=== PATIENT | male | born 1985 | race Caucasian/White ===

== ENCOUNTER 2020-03-28 18:50 | Emergency (ER) | payer OTHER ==
[~2020-03-28] VITALS: Ht 182.9 cm; Wt 113.6 kg
[2020-03-28 18:53] VITALS: Ht 182.9 cm; Wt 113.6 kg
[2020-03-28] MEDS ORDERED: ULTRAM50 MG PO (20:40)
[2020-03-28] MEDS ORDERED: AUGMENTIN 875-11 TAB PO (20:56)
[2020-03-28 22:19] VITALS: BP 125/77
== END 2020-03-28 22:20 | disposition home or self-care (01) ==
LOC: D.ER 18:50
DX: S02.40DA Maxillary fracture, left side, initial encounter for closed fracture (principal); S02.85XA Fracture of orbit, unspecified, initial encounter for closed fracture; S62.101A Fracture of unspecified carpal bone, right wrist, initial encounter for closed fracture; V29.9XXA Motorcycle rider (driver) (passenger) injured in unspecified traffic accident, initial encounter; Y93.9 Activity, unspecified; Y92.9 Unspecified place or not applicable

== ENCOUNTER 2020-04-26 07:31 | Day surgery (SDC) | payer MEDICARE ==
[~2020-04-26] VITALS: Ht 180.3 cm; Wt 111.1 kg
--- NOTE | ~2020-04-26 | OP ---
PATIENT NAME: JULIO BARRAZA MEDICAL RECORD: [id number] :81 LOCATION:[facility] ADMISSION DATE: SURGEON: OSMIN SAMANIEGO MD DATE OF OPERATION: 04/26/2020 PREOPERATIVE DIAGNOSES: Displaced intra-articular fracture of the right distal radius, acute carpal tunnel syndrome. POSTOPERATIVE DIAGNOSES: Displaced intra-articular fracture of the right distal radius, acute carpal tunnel syndrome. PROCEDURE: Open reduction internal fixation of the right distal radius, carpal tunnel release. SURGEON: Osmin Samaniego MD CHIMNEY BUILDER: KEYSHAWN Aguayo INTRAOPERATIVE COMPLICATIONS: None. IMPLANTS USED: VariAx 2 distal radial plate system. INDICATIONS: Julio Barraza initially presented with a nondisplaced distal radius fracture. However, in his post-fracture period, he tried to catch a falling large TV and sustained a second injury requiring operative intervention. OPERATIVE SUMMARY IN DETAIL: After obtaining the appropriate preoperative orthopedic surgery consent as well as anesthetic consultation, evaluation and clearance, the patient was brought to the operating room and placed on the operating table in supine position. After adequate general laryngeal mask was administered, tourniquet was placed about the proximal aspect of the right upper extremity. Right upper extremity was then prepped and draped in routine sterile fashion. The arm was elevated and exsanguinated, tourniquet inflated to 250 mmHg. At this point, the appropriate timeout was taken and agreed upon by all. Curvilinear incision was made in keeping with Domenico's volar approach into the palmar aspect. A carpal tunnel release was performed. After the curvilinear incision was made, dissection was carried into the mid palmar space and under direct visualization, transverse carpal ligament was incised in its entirety. Dissection was carried down into the fracture. Care was taken to avoid contact with the median nerve and flexors. These were gently retracted. After the fracture was identified in its entirety, it was reduced under fluoroscopic visualization and then the VariAx 2 plate was placed again under fluoroscopic visualization until it was in the appropriate position. Serial drill and fill technique was used with a combination of both compression and locking screws. Final radiographs were submitted on AP and lateral planes for radiologist review. The wound was then irrigated and closed by KEYSHAWN Aguayo with #2-0 Vicryl followed by 4-0 Prolene in a running fashion. Sterile dressings were applied. Volar splint was applied. Tourniquet was deflated. The patient was awakened and taken to the recovery room in stable condition. All final needle and sponge counts were correct. TRANSINT:[id number] Voice Confirmation ID: [id number] DOCUMENT ID: [id number] OPERATIVE REPORT [id number] JULIO BARRAZA MD, OSMIN LANDRY CC: [id number] DICTATION DATE: 04/30/20 1016 NURSING SECRETARY: 04/30/20 1142 [facility] 04/26/20 [place] [id number]
[~2020-04-26 07:31] MED LIST: AUGMENTIN 875-11 TAB PO; MEDICAL MARIJUANA; TYLENOL W/CODEI1 TAB PO; ULTRAM50 MG PO
[2020-04-26 08:54] VITALS: BP 135/72; Ht 180.3 cm; Wt 111.1 kg
--- NOTE | 2020-04-26 09:00 | NUR ---
DR. WEI NOTIFIED AND REVIEWED PT'S BEHAVIOR AND ASSESSMENT RESULTS. PT IS LOW RISK PER DR. WEI. RESOURCES PROVIDED TO PT AT THIS TIME. NO FURTHER ORDERS NOTED. RESOURCES REVIEWED WITH PT AND HE VERBALIZED UNDERSTANDING.
--- NOTE | 2020-04-26 09:18 | NUR ---
0900 PT WAS EVALUATED BY BEHAVIORAL HEALTH NURSE. 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 HX OF STREET DRUG USE BUT STATES HE HAS BEEN "CLEAN" FOR A MONTH. 0915 BLOCK ON RIGHT ARM DONE PER DR HORNE. PT TOLERATED PROCEDURE WITHOUT INCIDENT.
[2020-04-26] MEDS ORDERED: HYDROCODON-ACE1 EA10 PO (10:27)
--- NOTE | 2020-04-26 15:37 | NUR ---
0905 PT REPORTED EARLIER OF USING MARIJUANA THIS AM AROUND 0530. STATES HE USES THIS TO "CONTROL SEIZURES" DR SAMANIEGO WAS NOTIFIED AT THAT TIME OF PT'S USE OF MARIJUANA. PT WAS MADE AWARE THAT HE COULD NOT LEGALLY SIGN HIS PERMITS EVEN THOUGH HE WAS ORIENTED AND AWARE OF THE REASON HE WAS HERE FOR SURGERY. PT GAVE PERMISSION FOR HIS SISTER, KANDY FOURNIER (WHO HE STATED IS HIS NEXT OF KIN) TO GIVE PHONE CONSENT FOR HIS SURGERY. KANDY FOURNIER WAS CALLED AND SHE GAVE PHONE CONSENT FOR HER BROTHER, STEVEN BARRAZA, TO HAVE "RIGHT WRIST OPEN REDUCTION INTERNAL FIXATION" BY DR SAMANIEGO. SHE ALSO GAVE PHONE CONSENT FOR ANESTHESIA AND CONSENT FOR BLOOD TRANSFUSION IN THE EVENT OF AN EMERGENCY. EMIGDIO SILVA RN WAS THE SECOND NURSE WHO VERIFIED AND WITNESSED PERMITS WITH KANDY FOURNIER FOR HER BROTHER STEVEN BARRAZA.
== END 2020-04-26 12:20 | disposition home or self-care (01) ==
LOC: D.OPS 07:31 → D.PAN 09:30 → D.OPS 09:30 → D.PAN 10:00 → D.OPS 12:20 → D.PAN 17:15 → D.OPS 17:15
PROVIDERS: ATTEND Orthopaedic Surgery
DX: M25.531 Pain in right wrist (principal); S52.514A Nondisplaced fracture of right radial styloid process, initial encounter for closed fracture; X58.XXXA Exposure to other specified factors, initial encounter